=== PATIENT | male | born 1965 | race Caucasian/White ===

== ENCOUNTER 2018-05-06 12:37 | Emergency (ER) | payer OTHER ==
[~2018-05-06] VITALS: Ht 185.4 cm; Wt 104.8 kg
[2018-05-06 12:39] VITALS: BP 148/96
[2018-05-06] MEDS ORDERED: ALPRAZOLAM (13:48)
[2018-05-06] MEDS ORDERED: FLUO20CA19 PO (13:48)
[2018-05-06] MEDS ORDERED: SEROQUEL (13:48)
[2018-05-06] MEDS ORDERED: ALPRAZOLAM PO (13:48)
[2018-05-06] MEDS ORDERED: LAMOTRIGINE (13:48)
== END 2018-05-06 13:51 ==
LOC: ED 13:30
DX: S23.3XXA Sprain of ligaments of thoracic spine, initial encounter (principal); S46.812A Strain of other muscles, fascia and tendons at shoulder and upper arm level, left arm, initial encounter; W18.30XA Fall on same level, unspecified, initial encounter; Y93.89 Activity, other specified; Y92.89 Other specified places as the place of occurrence of the external cause; Y99.8 Other external cause status
CPT/HCPCS: 99283